=== PATIENT | female | born 1970 | race Caucasian/White ===

== ENCOUNTER → 2017-01-13 | Outpatient (CLI) | payer SELFPAY ==
[2017-01-13 11:19] LABS: ALANINE AMINOTRANSFERASE 37 U/L (9-52); ALBUMIN 4.4 g/dL (3.5-5.0); ALKALINE PHOSPHATASE 112 U/L (38-126); ANION GAP 13 (5-19); ASPARTATE AMINO TRANSFERASE 22 U/L (14-36); BILIRUBIN,DIRECT 0.4 mg/dL (0.0-0.4); BILIRUBIN,TOTAL 0.6 mg/dL (0.2-1.3); BLOOD UREA NITROGEN 12 mg/dL (7-20); CALCIUM 9.8 mg/dL (8.4-10.2); CARBON DIOXIDE 20 mmol/L (22-30); CHLORIDE 108 mmol/L (98-107); CREATININE RESULT 0.78 mg/dL (0.52-1.25); GLUCOSE 107 mg/dL (75-110); POTASSIUM 4.3 mmol/L (3.6-5.0); SODIUM 141.4 mmol/L (137-145); TOTAL PROTEIN 7.2 g/dL (6.3-8.2)
== END ==
LOC: OD 09:14
PROVIDERS: ATTEND Internal Medicine
DX: R21 Rash and other nonspecific skin eruption (principal)
CPT/HCPCS: 36415; 80053; 85652; 86038; 86592

== ENCOUNTER → 2017-02-23 | Outpatient (CLI) | payer SELFPAY ==
[2017-02-23 16:33] LABS: ABSOLUTE BASOPHILS # (AUTO) 0.1 10^3/uL (0.0-0.2); ABSOLUTE EOSINOPHILS # (AUTO) 0.1 10^3/uL (0.0-0.6); ABSOLUTE LYMPHOCYTES (AUTO) 1.3 10^3/uL (0.5-4.7); ABSOLUTE MONOCYTES (AUTO) 0.4 10^3/uL (0.1-1.4); ABSOLUTE NEUT (AUTO) 10.6 10^3/uL (1.7-8.2); BASOPHILS % (AUTO) 0.6 % (0-2); EOSINOPHILS % (AUTO) 0.9 % (0-6); HEMATOCRIT 38.7 % (36.0-47.0); HEMOGLOBIN 13.5 g/dL (12.0-15.5); HGB HCT DIFFERENCE 1.8; LYMPHOCYTES % (AUTO) 10.4 % (13-45); MEAN CORPUSCULAR HEMOGLOBIN 32.1 pg (27.0-33.4); MEAN CORPUSCULAR HGB CONC 34.9 g/dL (32.0-36.0); MEAN CORPUSCULAR VOLUME 92 fl (80-97); MONOCYTES % (AUTO) 3.3 % (3-13); RED BLOOD COUNT 4.21 10^6/uL (3.72-5.28); SEGMENTED NEUTROPHILS % (AUTO) 84.8 % (42-78); WHITE BLOOD COUNT 12.4 10^3/uL (4.0-10.5)
[2017-02-23 16:57] LABS: ALANINE AMINOTRANSFERASE 56 U/L (9-52); ALBUMIN 4.4 g/dL (3.5-5.0); ALKALINE PHOSPHATASE 150 U/L (38-126); ANION GAP 17 (5-19); ASPARTATE AMINO TRANSFERASE 31 U/L (14-36); BILIRUBIN,DIRECT 0.4 mg/dL (0.0-0.4); BILIRUBIN,TOTAL 0.4 mg/dL (0.2-1.3); BLOOD UREA NITROGEN 8 mg/dL (7-20); CALCIUM 9.5 mg/dL (8.4-10.2); CARBON DIOXIDE 19 mmol/L (22-30); CHLORIDE 109 mmol/L (98-107); CREATININE RESULT 0.71 mg/dL (0.52-1.25); GLUCOSE 120 mg/dL (75-110); POTASSIUM 3.9 mmol/L (3.6-5.0); SODIUM 144.6 mmol/L (137-145); TOTAL PROTEIN 7.2 g/dL (6.3-8.2)
[2017-02-28 14:37] LABS: QUANTIFERON TB ANTIGEN VALUE 0.07 IU/mL (.); QUANTIFERON TB NIL VALUE 0.06 IU/mL (.)
== END ==
LOC: DACC 15:07
PROVIDERS: ATTEND Physician Assistant
DX: L40.0 Psoriasis vulgaris (principal); Z79.899 Other long term (current) drug therapy
CPT/HCPCS: 36415; 80053; 80074; 85025; 86480

== ENCOUNTER → 2017-12-21 | Outpatient (CLI) | payer SELFPAY ==
[2017-12-23 07:10] LABS: LYME DISEASE IGM AB <0.80 index (0.00-0.79)
== END ==
LOC: OD 12:20
PROVIDERS: ATTEND Internal Medicine
DX: L30.9 Dermatitis, unspecified (principal)
CPT/HCPCS: 36415; 86617; 86618

== ENCOUNTER 2018-05-30 15:37 | Inpatient (IN) | payer SELFPAY ==
--- NOTE | 2018-05-30 16:54 | ER Document Report ---
ED Medical Screen (RME) - General Chief Complaint: Direct Admit- Falling Stated Complaint: WEAKNESS Time Seen by Provider: 05/30/18 16:46 Notes: 47-year-old female patient sent here by her PCP as a direct admit with orders, to rule out Nova Vazquez. She has had symptoms for at least a month that are worse in the last several days. I have greeted and performed a rapid initial assessment of this patient. A comprehensive ED assessment and evaluation of the patient, analysis of test results and completion of the medical decision making process will be conducted by additional ED providers. TRAVEL OUTSIDE OF THE [place] IN LAST 30 DAYS: No - Related Data Allergies/Adverse Reactions: mustard [Mustard] Allergy (Severe, Verified 07/22/13 09:53) swelling promethazine HCl [From Phenergan] Allergy (Severe, Verified 07/22/13 09:53) VOMITING latex [Latex] Adverse Reaction (Intermediate, Verified 07/22/13 09:53) swelling adhesive tape [Adhesive Tape] Adverse Reaction (Mild, Verified 07/22/13 09:53) Hives Past Medical History - Past Medical History Cardiac Medical History: Denies: Hx Coronary Artery Disease, Hx Heart Attack, Hx Hypertension Pulmonary Medical History: Denies: Hx Asthma, Hx Bronchitis, Hx COPD, Hx Pneumonia, Hx Tuberculosis Neurological Medical History: Denies: Hx Cerebrovascular Accident, Hx Seizures Musculoskeltal Medical History: Denies Hx Arthritis, Denies Hx Fibromyalgia, Reports Hx Multiple Sclerosis, Denies Hx Muscular Dystrophy Psychiatric Medical History: Reports: Hx Depression Denies: Hx Dementia Traumatic Medical History: Denies: Hx Fractures Past Surgical History: Reports: Hx Cholecystectomy, Hx Hysterectomy, Hx Orthopedic Surgery - back. Denies: Hx Appendectomy, Hx Bowel Surgery, Hx Section, Hx Coronary Artery Bypass Graft, Hx Gastric Bypass Surgery, Hx Herniorrhaphy, Hx Mastectomy, Hx Pacemaker, Hx Tonsillectomy, Hx Tubal Ligation - Immunizations Hx Diphtheria, Pertussis, Tetanus Vaccination: Yes Physical Exam - Vital signs Vitals: Temp Pulse Resp BP Pulse Ox 97.6 F 92 16 138/87 H 95 05/30/18 15:52 05/30/18 15:52 05/30/18 15:52 05/30/18 15:52 05/30/18 15:52 Course - Vital Signs Vital signs: Temp Pulse Resp BP Pulse Ox 97.6 F 92 16 138/87 H 95 05/30/18 15:52 05/30/18 15:52 05/30/18 15:52 05/30/18 15:52 05/30/18 15:52 Doctor's Discharge - Discharge Referrals: GWENDOLYN GONSALVES MD [Primary Care Provider] - Follow up as needed
[2018-05-30 18:24] LABS: ABSOLUTE EOSINOPHILS # (AUTO) 0.2 10^3/uL (0.0-0.6); ABSOLUTE LYMPHOCYTES (AUTO) 2.7 10^3/uL (0.5-4.7); ABSOLUTE MONOCYTES (AUTO) 0.5 10^3/uL (0.1-1.4); ABSOLUTE NEUT (AUTO) 6.8 10^3/uL (1.7-8.2); BASOPHILS % (AUTO) 0.2 % (0-2); EOSINOPHILS % (AUTO) 2.3 % (0-6); HEMATOCRIT 41.3 % (36.0-47.0); HEMOGLOBIN 14.3 g/dL (12.0-15.5); LYMPHOCYTES % (AUTO) 25.9 % (13-45); MEAN CORPUSCULAR HEMOGLOBIN 31.8 pg (27.0-33.4); MEAN CORPUSCULAR HGB CONC 34.6 g/dL (32.0-36.0); MEAN CORPUSCULAR VOLUME 92 fl (80-97); MONOCYTES % (AUTO) 4.8 % (3-13); PLATELET COUNT 259 10^3/uL (150-450); RED BLOOD COUNT 4.49 10^6/uL (3.72-5.28); RED CELL DISTRIBUTION WIDTH 14.2 % (11.5-14.0); SEGMENTED NEUTROPHILS % (AUTO) 66.8 % (42-78); TOTAL CELLS COUNTED % (AUTO) 100 %; WHITE BLOOD COUNT 10.3 10^3/uL (4.0-10.5)
[2018-05-30 18:45] LABS: ALANINE AMINOTRANSFERASE 47 U/L (9-52); ALBUMIN 4.4 g/dL (3.5-5.0); ALKALINE PHOSPHATASE 96 U/L (38-126); ANION GAP 8 (5-19); ASPARTATE AMINO TRANSFERASE 32 U/L (14-36); BILIRUBIN,DIRECT 0.3 mg/dL (0.0-0.4); BILIRUBIN,TOTAL 0.3 mg/dL (0.2-1.3); BLOOD UREA NITROGEN 14 mg/dL (7-20); C-REACTIVE PROTEIN 20.6 mg/L (<10.0); CALCIUM 9.2 mg/dL (8.4-10.2); CARBON DIOXIDE 23 mmol/L (22-30); CHLORIDE 109 mmol/L (98-107); GLUCOSE 114 mg/dL (75-110); POTASSIUM 4.3 mmol/L (3.6-5.0); SODIUM 139.9 mmol/L (137-145)
[2018-05-30 18:59] LABS: FREE T4 (FREE THYROXINE) 0.86 ng/dL (0.78-2.19)
[2018-05-30 19:13] LABS: THYROID STIMULATING HORMONE 1.11 uIU/mL (0.47-4.68)
[2018-05-30 19:22] LABS: ERYTHROCYTE SEDIMENTATION RATE 14 mm/hr (0-20)
[2018-05-30 20:01] LABS: INTERNATIONAL RATION (INR) 0.89; PROTHROMBIN TIME 12.5 SEC (11.4-15.4)
[2018-05-30 20:02] LABS: PARTIAL THROMBOPLASTIN TIME 27.1 SEC (23.5-35.8)
--- NOTE | 2018-05-30 20:29 | RADIOLOGY REPORT (SQ) ---
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 Findings: Diffusion-weighted images do not demonstrate restricted diffusion to suggest acute infarction. Craniocervical junction is intact. Midline structures cerebral structures are well preserved. Normal vascular flow voids are well preserved. Ventricles and subarachnoid spaces are preserved. Minimal patchy T2 hyperintense foci in the periventricular white matter. No extra-axial fluid collections. There appears to be a right posterior parietal chronic infarct with focal atrophy in the right superior parietal lobe along the cerebral falx. This is similar to the prior study. IMPRESSION: No acute infarct. Findings of mild chronic ischemic changes stable from prior remote study of 2013.
--- NOTE | 2018-05-30 20:57 | PDOC H&P ---
History of Present Illness Admission Date/PCP: 05/30/18 18:01 GWENDOLYN GONSALVES MD History of Present Illness: AZAEL STILL is a 47 year old female, She came to the office for evalu ation of multiple complaints Including memory lapses,, she has neuropathic symptoms, numbness of the extremity, abnormal sweating, gait disorder, the symptoms onset is insidious, she came to the office with her for evaluation, he was very concerned about her symptoms especially with her memory loss to recent events. She was admitted from outpatient, the office into the hospital, we have no neurology service in this hospital she was brought here for evaluation and to rule out any metabolic cause of her symptoms. MRI brain was obtained, it demonstrated right posterior parietal chronic infarct with focal atrophy in the right superior parietal lobe along the cerebral falx, a lumbar puncture was done the CSF protein was normal Past Medical History Psychiatric Medical History: Reports: Attention Deficit Hyperactivity Disorder, Depression, General Anxiety Disorder, Other Past Surgical History Past Surgical History: Reports: Cholecystectomy, Hysterectomy, Orthopedic Surgery - back Social History Smoking Status: Never Smoker Frequency of Alcohol Use: Rare Hx Recreational Drug Use: No Hx Prescription Drug Abuse: No Family History Family History: Reviewed & Not Pertinent Parental Family History Reviewed: Yes Children Family History Reviewed: Yes Sibling(s) Family History Reviewed.: Yes Medication/Allergy Home Medications: Cyclobenzaprine HCl [Flexeril 10 mg Tablet] 10 mg PO TIDP PRN 05/30/18 Diazepam [Valium] 10 mg PO BID 05/30/18 Methylphenidate HCl [Ritalin 5 mg Tablet] 5 mg PO BID 05/30/18 Metoprolol Tartrate [Lopressor 100 mg Tablet] 100 mg PO Q12 05/30/18 Tramadol HCl/Acetaminophen [Ultracet 37.5 mg/325 mg Tablet] 1 tab PO Q6HP PRN 05/30/18 Allergies/Adverse Reactions: mustard [Mustard] Allergy (Severe, Verified 07/22/13 09:53) swelling promethazine HCl [From Phenergan] Allergy (Severe, Verified 07/22/13 09:53) VOMITING latex [Latex] Adverse Reaction (Intermediate, Verified 07/22/13 09:53) swelling adhesive tape [Adhesive Tape] Adverse Reaction (Mild, Verified 07/22/13 09:53) Hives Review of Systems Constitutional: ABSENT: chills, fever(s), headache(s), weight gain, weight loss Eyes: ABSENT: visual disturbances Ears: ABSENT: hearing changes Cardiovascular: ABSENT: chest pain, dyspnea on exertion, edema, orthropnea, palpitations Respiratory: ABSENT: cough, hemoptysis Gastrointestinal: ABSENT: abdominal pain, constipation, diarrhea, hematemesis, hematochezia, nausea, vomiting Genitourinary: ABSENT: dysuria, hematuria Musculoskeletal: ABSENT: joint swelling Integumentary: ABSENT: rash, wounds Neurological: PRESENT: abnormal gait, frequent falls, numbness, paresthesias, tingling Psychiatric: ABSENT: anxiety, depression, homidical ideation, suicidal ideation Endocrine: ABSENT: cold intolerance, heat intolerance, menstrual abnormalities, polydipsia, polyuria Hematologic/Lymphatic: ABSENT: easy bleeding, easy bruising, lymphadenopathy Physical Exam Vital Signs: Temp Pulse Resp BP Pulse Ox 97.6 F 92 13 134/90 H 97 05/30/18 15:52 05/30/18 15:52 05/30/18 18:12 05/30/18 18:09 05/30/18 18:12 Intake & Output 05/29/18 05/30/18 05/31/18 06:59 06:59 06:59 Weight 85.3 kg General appearance: PRESENT: no acute distress Eye exam: PRESENT: PERRLA Ear exam: PRESENT: normal external ear exam Mouth exam: PRESENT: moist Neck exam: PRESENT: full ROM Respiratory exam: PRESENT: clear to auscultation kenia Cardiovascular exam: PRESENT: RRR, +S1, +S2 Vascular exam: PRESENT: normal capillary refill GI/Abdominal exam: PRESENT: normal bowel sounds, soft Rectal exam: PRESENT: deferred Neurological exam: PRESENT: alert, CN II-XII grossly intact, motor sensory deficit Skin exam: PRESENT: dry, intact, warm Results Laboratory Results: 05/30/18 18:12 05/30/18 18:12 05/30/18 05/30/18 05/30/18 18:12 18:12 18:12 WBC 10.3 RBC 4.49 Hgb 14.3 Hct 41.3 MCV 92 MCH 31.8 MCHC 34.6 RDW 14.2 H Plt Count 259 Seg Neutrophils % 66.8 Lymphocytes % 25.9 Monocytes % 4.8 Eosinophils % 2.3 Basophils % 0.2 Absolute Neutrophils 6.8 Absolute Lymphocytes 2.7 Absolute Monocytes 0.5 Absolute Eosinophils 0.2 Absolute Basophils 0.0 Sodium 139.9 Potassium 4.3 Chloride 109 H Carbon Dioxide 23 Anion Gap 8 BUN 14 Creatinine 0.66 Est GFR ( Amer) > 60 Est GFR (Non-Af Amer) > 60 Glucose 114 H Calcium 9.2 Total Bilirubin 0.3 AST 32 ALT 47 Alkaline Phosphatase 96 C-Reactive Protein 20.6 H Total Protein 7.0 Albumin 4.4 TSH 1.11 Free T4 0.86 Impressions: Head MRI 05/30/18 00:00 IMPRESSION: No acute infarct. Findings of mild chronic ischemic changes stable from prior remote study of 2013. Assessment & Plan - Diagnosis (1) Polyneuropathy, unspecified Is this a current diagnosis for this admission?: Yes Plan: Patient of symptoms and signs of unspecified polyneuropathy (2) CVA, old, alterations of sensations Is this a current diagnosis for this admission?: Yes
[2018-05-30 21:01] LABS: APPEARANCE,URINE CLOUDY; BILIRUBIN,URINE NEGATIVE (NEGATIVE); COLOR,URINE YELLOW; GLUCOSE, URINE NEGATIVE (NEGATIVE); KETONES,URINE NEGATIVE (NEGATIVE); LEUKOCYTE ESTERASE,URINE SMALL (NEGATIVE); NITRITE,URINE NEGATIVE (NEGATIVE); PROTEIN,URINE NEGATIVE (NEGATIVE); UROBILINOGEN,URINE NEGATIVE mg/dL (<2.0)
[2018-05-30] MEDS ORDERED: METOPROLOL TARTRATE 100 MG TABLET PO ONE (21:45)
[2018-05-30] MEDS ORDERED: DIAZEPAM 5 MG TABLET PO SCH (22:15)
[2018-05-30] MEDS ORDERED: DIAZEPAM 5 MG TABLET PO ONE (22:30)
[2018-05-30] MEDS: CYCLOBENZAPRINE HCL 10 MG TABLET PO PRN (22:53)
[2018-05-31] MEDS: METOPROLOL TARTRATE 100 MG TABLET PO SCH ×2 (10:48→22:03)
[2018-05-31] MEDS: DIAZEPAM 5 MG TABLET PO SCH ×2 (10:49→22:03)
[2018-05-31] MEDS: METHYLPHENIDATE HCL 5 MG TABLET PO SCH ×2 (10:51→17:14)
--- NOTE | 2018-05-31 14:05 | RADIOLOGY REPORT (SQ) ---
EXAM DESCRIPTION: LUMBAR PUNCTURE; FLUORO/NEEDLE PLACEMENT/SPINE COMPLETED DATE/TIME: 05/31/2018 1:56 pm REASON FOR STUDY: ? GBS ; GBS COMPARISON: None. FLUOROSCOPY TIME: 10 seconds 1 images saved to PACS. TECHNIQUE: Fluoroscopic guided lumbar puncture with opening and closing pressures. LIMITATIONS: None. PROCEDURE: After written consent and assessment were obtained, the patient was brought into the fluo roscopy room and placed prone on the table. The patient's lower back was prepped in a sterile fashio n and an entry site was selected under live fluoroscopic guidance. The entry site was anesthetized wi th 1% lidocaine. A 22 gauge needle was advanced through the skin and into the thecal sac at the level of L3-L4. An opening pressure of 22 water units was obtained. Approximately 11.5ml of CSF was ami abdi. The needle was removed and a sterile bandage was placed of the site. Specimens were sent to the lab for testing. A fluoroscopic spot image was saved to PACS confirming level access. FINDINGS: Clear CSF IMPRESSION: Lumbar puncture under fluoroscopy. No immediate complication. COMMENT: Patient medication list reviewed:Yes- Quality ID# [id number]:Eligible professional attests to docu menting in the medical record they obtained, updated, or reviewed the patient's current medications.. Quality ID 145: Final reports for procedures using fluoroscopy that document radiation exposure lara deonna, or exposure time and number of fluorographic images (if radiation exposure indices are not avail able) TECHNICAL DOCUMENTATION: JOB ID: [id number] [employer]- All Rights Reserved Reading location - IP/workstation name: [email or web address]
--- NOTE | 2018-05-31 14:05 | RADIOLOGY REPORT (SQ) ---
EXAM DESCRIPTION: LUMBAR PUNCTURE; FLUORO/NEEDLE PLACEMENT/SPINE COMPLETED DATE/TIME: 05/31/2018 1:56 pm REASON FOR STUDY: ? GBS ; GBS COMPARISON: None. FLUOROSCOPY TIME: 10 seconds 1 images saved to PACS. TECHNIQUE: Fluoroscopic guided lumbar puncture with opening and closing pressures. LIMITATIONS: None. PROCEDURE: After written consent and assessment were obtained, the patient was brought into the fluo roscopy room and placed prone on the table. The patient's lower back was prepped in a sterile fashio n and an entry site was selected under live fluoroscopic guidance. The entry site was anesthetized wi th 1% lidocaine. A 22 gauge needle was advanced through the skin and into the thecal sac at the level of L3-L4. An opening pressure of 22 water units was obtained. Approximately 11.5ml of CSF was ami abdi. The needle was removed and a sterile bandage was placed of the site. Specimens were sent to the lab for testing. A fluoroscopic spot image was saved to PACS confirming level access. FINDINGS: Clear CSF IMPRESSION: Lumbar puncture under fluoroscopy. No immediate complication. COMMENT: Patient medication list reviewed:Yes- Quality ID# [id number]:Eligible professional attests to docu menting in the medical record they obtained, updated, or reviewed the patient's current medications.. Quality ID 145: Final reports for procedures using fluoroscopy that document radiation exposure lara deonna, or exposure time and number of fluorographic images (if radiation exposure indices are not avail able) TECHNICAL DOCUMENTATION: JOB ID: [id number] [employer]- All Rights Reserved Reading location - IP/workstation name: [email or web address]
[2018-05-31 14:33] LABS: APPEARANCE ALL TUBES CLEAR; COLOR ALL TUBES COLORLESS; CSF TUBE NUMBER 3; VOLUME TUBE 3 2.5 CC; VOLUME TUBE 4 3.5 CC
[2018-05-31 14:34] LABS: RED BLOOD CELL,CSF 0 /uL (0-10)
[2018-05-31 14:35] LABS: WHITE BLOOD CELL,CSF 1 /uL (0-5)
[2018-05-31 14:59] LABS: GLUCOSE,CSF 78 mg/dL (40-70); PROTEIN,CSF 60 mg/dL (12-60)
[2018-05-31] MEDS: NICOTINE 21 MG/24 HR PATCH.TD24 TD SCH (16:29)
[2018-05-31] MEDS: TRAMADOL HCL 50 MG TABLET PO PRN ×2 (16:30→22:03)
--- NOTE | 2018-05-31 20:43 | PDOC PROGRESS REPORT ---
Subjective Progress Note for:: 05/31/18 Subjective:: Patient was seen by the bedside,The lumbar puncture was negative Reason For Visit: WEAKNESS,?GUILLIAN-BARRE SYNDROME Physical Exam Vital Signs: Temp Pulse Resp BP Pulse Ox 98.1 F 83 16 125/80 98 05/31/18 19:31 05/31/18 19:31 05/31/18 19:31 05/31/18 19:31 05/31/18 19:31 Intake & Output 05/30/18 05/31/18 06/01/18 06:59 06:59 06:59 Intake Total 400 780 Balance 400 780 Weight 85.3 kg 85.3 kg General appearance: PRESENT: no acute distress Eye exam: PRESENT: PERRLA Respiratory exam: PRESENT: clear to auscultation kenia Cardiovascular exam: PRESENT: +S1, +S2 Neurological exam: PRESENT: alert Results Laboratory Results: 05/30/18 18:12 05/30/18 18:12 05/30/18 05/31/18 05/31/18 20:29 13:40 13:40 Urine Color YELLOW Urine Appearance CLOUDY Urine pH 5.0 Ur Specific Cut Off 1.020 Urine Protein NEGATIVE Urine Glucose (UA) NEGATIVE Urine Ketones NEGATIVE Urine Blood NEGATIVE Urine Nitrite NEGATIVE Ur Leukocyte Esterase SMALL H Urine WBC (Auto) 8 Urine RBC (Auto) 1 Fluid Tube Number 3 CSF Volume 10.0 CSF Appearance CLEAR CSF Color COLORLESS CSF WBC 1 CSF RBC 0 CSF Glucose 78 H CSF Total Protein 60 Impressions: Head MRI 05/30/18 00:00 IMPRESSION: No acute infarct. Findings of mild chronic ischemic changes stable from prior remote study of 2013. Guidance Fluoroscopy 05/31/18 00:00 IMPRESSION: Lumbar puncture under fluoroscopy. No immediate complication. Lumbar Puncture 05/31/18 00:00 IMPRESSION: Lumbar puncture under fluoroscopy. No immediate complication. Assessment & Plan - Diagnosis (1) Polyneuropathy, unspecified Is this a current diagnosis for this admission?: Yes (2) CVA, old, alterations of sensations Is this a current diagnosis for this admission?: Yes
[2018-06-01] MEDS: METOPROLOL TARTRATE 100 MG TABLET PO SCH ×2 (10:28→21:12)
[2018-06-01] MEDS: NICOTINE 21 MG/24 HR PATCH.TD24 TD SCH (10:29)
[2018-06-01] MEDS: DIAZEPAM 5 MG TABLET PO SCH ×2 (10:30→21:12)
[2018-06-01] MEDS: METHYLPHENIDATE HCL 5 MG TABLET PO SCH ×2 (10:37→18:12)
[2018-06-01] MEDS: TRAMADOL HCL 50 MG TABLET PO PRN ×2 (10:42→18:26)
[2018-06-01 17:24] LABS: FREE T4 (FREE THYROXINE) 0.82 ng/dL (0.78-2.19)
[2018-06-01 17:38] LABS: THYROID STIMULATING HORMONE 1.57 uIU/mL (0.47-4.68)
[2018-06-01] MEDS: CIPROFLOXACIN HCL 500 MG TABLET PO SCH (18:12)
[2018-06-01] MEDS: CYCLOBENZAPRINE HCL 10 MG TABLET PO PRN (18:25)
[2018-06-01 19:36] LABS: HSV I DNA Negative (Negative)
[2018-06-01] MEDS ORDERED: ACETAMINOPHEN 325 MG TABLET PO PRN (19:57)
--- NOTE | 2018-06-01 20:23 | PDOC PROGRESS REPORT ---
Subjective Progress Note for:: 06/01/18 Subjective:: I spoke to [facility] neurology, patient was not accepted in transfer Reason For Visit: WEAKNESS,?GUILLIAN-BARRE SYNDROME Physical Exam Vital Signs: Temp Pulse Resp BP Pulse Ox 98.1 F 98 20 120/72 96 06/01/18 11:21 06/01/18 11:21 06/01/18 11:21 06/01/18 11:21 06/01/18 11:21 Intake & Output 05/31/18 06/01/18 06/02/18 06:59 06:59 06:59 Intake Total 400 1580 704 Balance 400 1580 704 Weight 85.3 kg 85.3 kg General appearance: PRESENT: no acute distress Eye exam: PRESENT: PERRLA Respiratory exam: PRESENT: clear to auscultation kenia Cardiovascular exam: PRESENT: +S1, +S2 GI/Abdominal exam: PRESENT: soft Neurological exam: PRESENT: alert Results Laboratory Results: 05/30/18 18:12 05/30/18 18:12 06/01/18 06/01/18 16:30 16:30 Vitamin B12 389.0 TSH 1.57 Free T4 0.82 05/30/18 20:29 Clean Catch Midstream Urine Culture - Final Escherichia Coli Impressions: Head MRI 05/30/18 00:00 IMPRESSION: No acute infarct. Findings of mild chronic ischemic changes stable from prior remote study of 2013. Guidance Fluoroscopy 05/31/18 00:00 IMPRESSION: Lumbar puncture under fluoroscopy. No immediate complication. Lumbar Puncture 05/31/18 00:00 IMPRESSION: Lumbar puncture under fluoroscopy. No immediate complication. Assessment & Plan - Diagnosis (1) Polyneuropathy, unspecified Is this a current diagnosis for this admission?: Yes (2) CVA, old, alterations of sensations Is this a current diagnosis for this admission?: Yes
[2018-06-01] MEDS: DIPHENHYDRAMINE HCL 25 MG CAPSULE PO PRN (21:12)
[2018-06-02 07:08] LABS: HSV II DNA Negative (Negative)
[2018-06-02] MEDS: TRAMADOL HCL 50 MG TABLET PO PRN ×2 (08:15→16:36)
[2018-06-02] MEDS: CIPROFLOXACIN HCL 500 MG TABLET PO SCH ×2 (08:16→17:06)
[2018-06-02] MEDS: DIPHENHYDRAMINE HCL 25 MG CAPSULE PO PRN ×2 (08:16→16:37)
[2018-06-02] MEDS: NICOTINE 21 MG/24 HR PATCH.TD24 TD SCH (10:37)
[2018-06-02] MEDS: METOPROLOL TARTRATE 100 MG TABLET PO SCH (10:38)
[2018-06-02] MEDS: METHYLPHENIDATE HCL 5 MG TABLET PO SCH (10:38)
[2018-06-02] MEDS: DIAZEPAM 5 MG TABLET PO SCH (10:38)
[2018-06-02] MEDS: CYCLOBENZAPRINE HCL 10 MG TABLET PO PRN (10:51)
[2018-06-02 16:41] LABS: M-SPIKE % UR Not Observed % (Not Observ); PROTEIN TOTAL URINE 13.7 mg/dL (Not Estab.)
[2018-06-02 16:47] VITALS: BP 124/81
--- NOTE | 2018-06-02 18:29 | PDOC DISCHARGE SUMMARY ---
General - Admit/Disc Date/PCP Admission Date/Primary Care Provider: 05/30/18 18:01 GWENDOLYN GONSALVES MD Discharge Date: 06/02/18 - Discharge Diagnosis (1) Polyneuropathy, unspecified Is this a current diagnosis for this admission?: Yes (2) CVA, old, alterations of sensations Is this a current diagnosis for this admission?: Yes (3) Urinary tract infection Is this a current diagnosis for this admission?: Yes - Additional Information Discharge Activity: Activity As Tolerated Prescriptions: Tramadol HCl/Acetaminophen [Ultracet 37.5 mg/325 mg Tablet] 1 tab PO Q6HP PRN #120 tablet PRN Reason: For Pain Clobetasol Propionate [Temovate] 60 gm TP DAILY #1 cream..g. Cyclobenzaprine HCl [Flexeril 10 mg Tablet] 10 mg PO TIDP PRN #90 tablet PRN Reason: Muscle Spasms Diazepam [Valium] 10 mg PO BID #60 tablet Methylphenidate HCl [Ritalin 5 mg Tablet] 5 mg PO BID #60 tablet Metoprolol Tartrate [Lopressor 100 mg Tablet] 100 mg PO Q12 #60 tablet Home Medications: Clobetasol Propionate [Temovate] 60 gm TP DAILY #1 cream..g. 06/02/18 Cyclobenzaprine HCl [Flexeril 10 mg Tablet] 10 mg PO TIDP PRN #90 tablet 06/02/18 Diazepam [Valium] 10 mg PO BID #60 tablet 06/02/18 Methylphenidate HCl [Ritalin 5 mg Tablet] 5 mg PO BID #60 tablet 06/02/18 Metoprolol Tartrate [Lopressor 100 mg Tablet] 100 mg PO Q12 #60 tablet 06/02/18 Tramadol HCl [Ultram 50 mg Tablet] 50 mg PO Q6HP PRN #0 tablet 06/02/18 Tramadol HCl/Acetaminophen [Ultracet 37.5 mg/325 mg Tablet] 1 tab PO Q6HP PRN #120 tablet 06/02/18 History of Present Illness History of Present Illness: AZAEL STILL is a 47 year old female, She came to the office for evaluation of multiple complaints Including memory lapses,, she has neuropathic symptoms, numbness of the extremity, abnormal sweating, gait disorder, the symptoms onset is insidious, she came to the office with her for evaluation, he was very concerned about her symptoms especially with her memory loss to recent events. She was admitted from outpatient, the office into the hospital, we have no neurology service in this hospital she was brought here f or evaluation and to rule out any metabolic cause of her symptoms. MRI brain was obtained, it demonstrated right posterior parietal chronic infarct with focal atrophy in the right superior parietal lobe along the cerebral falx, a lumbar puncture was done the CSF protein was normal Hospital Course Hospital Course: Patient was admitted for the evaluation and management of nonspecific neuropathy symptoms, MRI brain was done, there was no acute findings on the MRI lumbar puncture was done, There was no pleocytosis, no protein elevation in the CSF she was also found to have urinary tract infection she was not symptomatic from the UTI ,there was no frequency or dysuria.I called [facility] neurology for advice and for possible transfer to [facility], the neurologist on-call advised that patient should be discharged and to follow with them outpatient Physical Exam Vital Signs: Temp Pulse Resp BP Pulse Ox 97.9 F 79 16 124/81 94 06/02/18 16:45 06/02/18 16:45 06/02/18 16:45 06/02/18 16:45 06/02/18 16:45 Intake & Output 06/01/18 06/02/18 06/03/18 06:59 06:59 06:59 Intake Total 1580 1204 858 Balance 1580 1204 858 Weight 85.3 kg 85.4 kg General appearance: PRESENT: no acute distress Head exam: PRESENT: atraumatic, normocephalic Eye exam: PRESENT: PERRLA Ear exam: PRESENT: normal external ear exam Mouth exam: PRESENT: moist Neck exam: PRESENT: full ROM Respiratory exam: PRESENT: clear to auscultation kenia Cardiovascular exam: PRESENT: +S1, +S2 Pulses: PRESENT: normal dorsalis pedis pul, +2 pedal pulses bilateral Vascular exam: PRESENT: normal capillary refill GI/Abdominal exam: PRESENT: normal bowel sounds, soft Rectal exam: PRESENT: deferred Neurological exam: PRESENT: alert, CN II-XII grossly intact Psychiatric exam: PRESENT: appropriate affect, normal mood Skin exam: PRESENT: dry, intact, warm Results Laboratory Results: 05/30/18 18:12 05/30/18 18:12 Impressions: Head MRI 05/30/18 00:00 IMPRESSION: No acute infarct. Findings of mild chronic ischemic changes stable from prior remote study of 2013. Guidance Fluoroscopy 05/31/18 00:00 IMPRESSION: Lumbar puncture under fluoroscopy. No immediate complication. Lumbar Puncture 05/31/18 00:00 IMPRESSION: Lumbar puncture under fluoroscopy. No immediate complication. Qualifiers - * PATIENT BEING DISCHARGED WITH ANY OF THE FOLLOWING DIAGNOSIS: No
[2018-06-03 13:38] LABS: A/G RATIO 1.1 (0.7-1.7); ALBUMIN 2 3.2 g/dL (2.9-4.4); ALPHA-2-GLOBULIN 2 0.9 g/dL (0.4-1.0); BETA GLOBULINS 1.1 g/dL (0.7-1.3); GAMMA GLOBULIN 0.6 g/dL (0.4-1.8); GLOBULIN TOTAL 2.8 g/dL (2.2-3.9); MONOCLONAL SPIKE Not Observed g/dL (Not Observ)
[2018-06-06 16:39] LABS: ALPHA-1-GLOBULIN 1 3.6 % (1.1-6.6); ALPHA-2-GLOBULIN 6.1 % (3.0-12.6); CSF ALBUMIN 62.9 % (56.8-76.4); PRE ALBUMIN 3.5 % (2.2-7.1); TOTAL PROTEIN CSF PE 49.2 mg/dL (0.0-44.0)
[2018-06-07 07:16] LABS: CSF PE GAMMA GLOBULIN 6.4 % (3.0-13.0); PROT ELEC MSPIKE Not Observed % (Not Observ)
== END 2018-06-02 18:10 | disposition home or self-care (01) | DRG 74 ==
LOC: ER 15:37 → EH 18:01 → 4N 05-31 00:52
PROVIDERS: ADMIT Internal Medicine; ATTEND Internal Medicine
PROC: 009U3ZX Drainage of Spinal Canal, Percutaneous Approach, Diagnostic (ICD-10-PCS; principal; 2018-05-31)
PROC: B01BZZZ Fluoroscopy of Spinal Cord (ICD-10-PCS; 2018-05-31)
DX: G62.9 Polyneuropathy, unspecified (principal); N39.0 Urinary tract infection, site not specified; R53.1 Weakness; R20.0 Anesthesia of skin; R41.3 Other amnesia; Z91.040 Latex allergy status; Z88.8 Allergy status to other drugs, medicaments and biological substances; Z91.018 Allergy to other foods
CPT/HCPCS: 36415; 62270; 70551; 77003; 80053; 81001; 82607; 82945; 84157; 84165; 84166; 84439; 84443; 85025; 85610; 85652; 85730; 86140; 87015; 87070; 87086; 87088; 87116; 87186; 87205; 87206; 87210; 87529; 89050; 99285; J3490

== ENCOUNTER → 2019-08-09 | Outpatient (CLI) | payer SELFPAY ==
[2019-08-09 11:49] LABS: ABSOLUTE BASOPHILS # (AUTO) 0.1 10^3/uL (0.0-0.2); ABSOLUTE EOSINOPHILS # (AUTO) 0.4 10^3/uL (0.0-0.6); ABSOLUTE MONOCYTES (AUTO) 0.5 10^3/uL (0.1-1.4); ABSOLUTE NEUT (AUTO) 6.9 10^3/uL (1.7-8.2); BASOPHILS % (AUTO) 1.2 % (0-2); EOSINOPHILS % (AUTO) 3.3 % (0-6); HEMATOCRIT 40.3 % (36.0-47.0); HEMOGLOBIN 14.1 g/dL (12.0-15.5); LYMPHOCYTES % (AUTO) 27.4 % (13-45); MEAN CORPUSCULAR HEMOGLOBIN 31.9 pg (27.0-33.4); MEAN CORPUSCULAR VOLUME 91 fl (80-97); MONOCYTES % (AUTO) 4.7 % (3-13); PLATELET COUNT 289 10^3/uL (150-450); RED BLOOD COUNT 4.43 10^6/uL (3.72-5.28); RED CELL DISTRIBUTION WIDTH 14.7 % (11.5-14.0); SEGMENTED NEUTROPHILS % (AUTO) 63.4 % (42-78); TOTAL CELLS COUNTED % (AUTO) 100 %; WHITE BLOOD COUNT 10.9 10^3/uL (4.0-10.5)
[2019-08-09 11:56] LABS: APPEARANCE,URINE CLEAR; BILIRUBIN,URINE NEGATIVE (NEGATIVE); COLOR,URINE YELLOW; GLUCOSE, URINE NEGATIVE (NEGATIVE); KETONES,URINE NEGATIVE (NEGATIVE); LEUKOCYTE ESTERASE,URINE NEGATIVE (NEGATIVE); NITRITE,URINE NEGATIVE (NEGATIVE); PROTEIN,URINE NEGATIVE (NEGATIVE); URINE SPECIFIC GRAVITY 1.008; UROBILINOGEN,URINE NEGATIVE mg/dL (<2.0)
[2019-08-09 12:10] LABS: ALBUMIN 4.2 g/dL (3.5-5.0); ALKALINE PHOSPHATASE 109 U/L (38-126); ANION GAP 8 (5-19); ASPARTATE AMINO TRANSFERASE 34 U/L (14-36); BILIRUBIN,DIRECT 0.4 mg/dL (0.0-0.4); BILIRUBIN,TOTAL 0.4 mg/dL (0.2-1.3); BLOOD UREA NITROGEN 13 mg/dL (7-20); CALCIUM 9.2 mg/dL (8.4-10.2); CARBON DIOXIDE 21 mmol/L (22-30); CHLORIDE 110 mmol/L (98-107); GLUCOSE 133 mg/dL (75-110); POTASSIUM 4.5 mmol/L (3.6-5.0); TOTAL PROTEIN 7.1 g/dL (6.3-8.2); URIC ACID 5.1 mg/dL (2.5-7.5)
== END ==
LOC: OD 10:48
PROVIDERS: ATTEND Internal Medicine
DX: R00.0 Tachycardia, unspecified (principal); L40.9 Psoriasis, unspecified
CPT/HCPCS: 36415; 80053; 81001; 84436; 84443; 84550; 85025

== ENCOUNTER → 2019-08-16 | Outpatient (CLI) | payer SELFPAY ==
[2019-08-16 10:56] LABS: ANION GAP 9 (5-19); BLOOD UREA NITROGEN 13 mg/dL (7-20); CALCIUM 9.6 mg/dL (8.4-10.2); CARBON DIOXIDE 24 mmol/L (22-30); CHLORIDE 107 mmol/L (98-107); GLUCOSE 107 mg/dL (75-110); POTASSIUM 4.5 mmol/L (3.6-5.0)
== END ==
LOC: OD 09:05
PROVIDERS: ATTEND Internal Medicine
DX: R73.9 Hyperglycemia, unspecified (principal)
CPT/HCPCS: 36415; 80048; 83036

== ENCOUNTER → 2020-02-22 | Outpatient (CLI) | payer SELFPAY ==
[2020-02-22 16:56] LABS: ABSOLUTE BASOPHILS # (AUTO) 0.1 10^3/uL (0.0-0.2); ABSOLUTE EOSINOPHILS # (AUTO) 0.3 10^3/uL (0.0-0.6); ABSOLUTE MONOCYTES (AUTO) 0.5 10^3/uL (0.1-1.4); ABSOLUTE NEUT (AUTO) 9.2 10^3/uL (1.7-8.2); BASOPHILS % (AUTO) 0.7 % (0-2); EOSINOPHILS % (AUTO) 1.9 % (0-6); HEMATOCRIT 42.1 % (36.0-47.0); HEMOGLOBIN 14.8 g/dL (12.0-15.5); LYMPHOCYTES % (AUTO) 23.1 % (13-45); MEAN CORPUSCULAR HEMOGLOBIN 32.8 pg (27.0-33.4); MEAN CORPUSCULAR HGB CONC 35.2 g/dL (32.0-36.0); MEAN CORPUSCULAR VOLUME 93 fl (80-97); MONOCYTES % (AUTO) 4.1 % (3-13); PLATELET COUNT 284 10^3/uL (150-450); RED BLOOD COUNT 4.51 10^6/uL (3.72-5.28); SEGMENTED NEUTROPHILS % (AUTO) 70.2 % (42-78); TOTAL CELLS COUNTED % (AUTO) 100 %; WHITE BLOOD COUNT 13.2 10^3/uL (4.0-10.5)
[2020-02-22 17:18] LABS: ALBUMIN 4.4 g/dL (3.5-5.0); ALKALINE PHOSPHATASE 121 U/L (38-126); ANION GAP 12 (5-19); ASPARTATE AMINO TRANSFERASE 20 U/L (14-36); BILIRUBIN,DIRECT 0.2 mg/dL (0.0-0.4); BILIRUBIN,TOTAL 0.4 mg/dL (0.2-1.3); BLOOD UREA NITROGEN 16 mg/dL (7-20); CALCIUM 9.5 mg/dL (8.4-10.2); CARBON DIOXIDE 21 mmol/L (22-30); CHLORIDE 105 mmol/L (98-107); GLUCOSE 113 mg/dL (75-110); POTASSIUM 4.6 mmol/L (3.6-5.0); TOTAL PROTEIN 7.2 g/dL (6.3-8.2)
== END ==
LOC: OD 16:01
PROVIDERS: ATTEND Internal Medicine
DX: L40.9 Psoriasis, unspecified (principal)
CPT/HCPCS: 36415; 80053; 85025